=== PATIENT | female | born 1955 | race Caucasian/White ===

== ENCOUNTER 2024-05-15 10:28 | Outpatient (RCR) | payer MEDICARE, SELFPAY ==
--- NOTE | 2024-06-23 18:09 | MHC.SP.ADU ---
Referring provider: Carrie Vega MD Reason for Referral: Recent CVA Type of Treatment: 30228 Evaluation Speech Sound Production WITH Language Date of Plan of Treatment: 05/15/24 Onset of Symptoms/Illness: 04/21/24 Date Treatment Started: 05/15/24 Medical Diagnosis: CVA Primary Speech Language Diagnosis: Other History Soni is sharp-witted and cordial 69 year-old who recently had a stroke. She was speaking with her friend on the phone when she notice her words becoming garbled. She hung up the phone and dialed 911. 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 She had some rehab at [place]. She recalls doing singing exercises. She is a retired RN and wants to make sure that she isn't missing anything, causing her to initiate this evaluation. Medical History: Medication List: Afib (w/ Elliquis) Recent Hospitalizations: Yes Respiratory Needs: Room Air Patient Orientation: Alert & Oriented x 4 Social History: Employment Status: Retired Highest level of education obtained: Completed Bachelor's Current Living Situation: Lives independently. Swallowing History: Dysphagia Specific: Within Functional Limits Comments: No complaints per patient. Pre-eval Risk for Aspiration: Pre-evaluation Dietary Consistencies: Regular Pre-eval Liquid Intake: Thin Pre-eval Medication Intake: Whole with Liquid Reported Speech, Language, Cognition difficulties: Not Applicable Assessment Speech Production: Within Functional Limits Clinical Impression: Intact Informal Voice Assessment: Voice Loudness: Normal Voice Nasal Resonance: Normal Voice Oral Resonance: Normal Voice Phonatory-based Quality: Normal Voice Pitch: Normal Clinical Impression: Intact Tests of Speech & Lang Adults: WAB-R Clinical Impression: Intact Observations: Soni completed the Western Aphasia Battery - Revised (WAB-R). She received a near perfect score with a 99.8/100 Aphasia Quotient. The only single point she lost was by generating 19/20 words in a Semantic Fluency task. We reviewed these results and confirmed that she does not fit the criteria for skilled Speech Therapy. She is encouraged to continue with singing, reading aloud, and staying active with friends in the community. She left our office thankful, and in agreement. Tests of Cognition: Clinical Impression: Did Not Test Augmentative and Alternative Communication: Did Not Test Impressions and Recommendations Summary: Impact on Daily Function/Activity Limitations: Daily Activities: None Interpersonal Interactions: None Education: None Employment: None Community: None Prognosis for Improvement: Excellent Recommendation for Speech Therapy: NA:Typical Evaluation Time to Reassess: PRN Patient Education: Completed: Yes Patient/Caregiver Education: Described Results of Evaluation Patient expressed understanding of evaluation Patient agrees with goals and treatment plan Lands Resource Manager Clinican/Clinical Fellow: No Supervisory Statement: N/A Speech Language Pathologist: Ethan Merino M.A., CCC-VICE PRESIDENT OF SOFTWARE ENGINEERING
== END 2024-06-24 10:56 | disposition home or self-care (01) ==
LOC: HO.SH 10:28
PROVIDERS: Visit Provider Internal Medicine
DX: R47.1 Dysarthria and anarthria (principal)
CPT/HCPCS: 92523